=== PATIENT | female | born 1995 | race African-American/Black ===

== ENCOUNTER 2017-01-11 11:52 | Emergency (ER) | payer OTHER ==
[~2017-01-11] VITALS: Ht 170.2 cm; Wt 83.9 kg
[~2017-01-11 11:52] MED LIST: AUGMENTIN 875-1 EACH PO; BENTYL20 M1 PO; ERYTHROMYCIN5 MG/GM OPH; FIORICET 325 MG1 TAB PO; HYDROXYZINE HCL50 MG PO; HYDROXYZINE50 MG PO; MECLIZINE12.5 MG PO; MEDROL4 M2 PO; MOTRIN600 MG PO; NASONEX17 GM NASB; NOVAPLUS V0.09 MG/Ac INH; PRILOSEC 20MG C20 MG PO; TRIAMCINOL0.1 %/453 TOP; ZOFRAN 4 MG TABL4 MG PO; ZOFRAN ODT4 M1 SL
--- NOTE | 2017-01-11 12:27 | ED GENERAL ADULT ---
History of Present Illness General Chief Complaint: General Adult Stated Complaint: BIBA FOR ?HANGOVER FROM DRINKING LAST PM Source: patient Exam Limitations: no limitations Vital Signs & Intake/Output Vital Signs & Intake/Output Vital Signs Date Time Temp Pulse Resp B/P B/P Pulse O2 O2 Flow FiO2 Mean Ox Delivery Rate 01/11 1349 97.0 67 16 116/59 100 Room Air 01/11 1214 97.1 95 20 128/70 95 Room Air Allergies Coded Allergies: NO KNOWN ALLERGIES (05/13/14) Triage Note: STATES " I WAS DRINKING ALOT LAST PM", I HAVE A HANGOVER. Triage Nurses Notes Reviewed? yes : No Patient currently breastfeeds: No HPI: 21 yo F presenting with headache, nausea. Patient states that she was drinking "more than usual" last night, beer and vodka, woke up this morning with diffuse headache, nausea without emesis, malaise, fatigue, patient states consistent with previous "hangovers". Denies fevers, chills, chest pain, SOB, palpitations, abdominal pain, diarrhea, constipation, bloody stools, urinary Sx, neck pain, neck stiffness, or focal neurologic Sx. Patient states that she remembers the entire eveing, denies falls, trauma, or pain. (KALEB MCGOVERN,SHIELA) Reconcile Medications Ondansetron (Zofran Odt) 4 MG TAB.RAPDIS 1 TAB SL TID Nausea and Vomiting (ENRIQUE MCGOVERN,ALIYA) Past History Travel History Traveled to [place] past 21 day No Medical History Any Pertinent Medical History? 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 Yes (KALEB MCGOVERN,SHIELA) Review of Systems Review of Systems Constitutional: Reports: malaise. EENTM: Reports: no symptoms. Respiratory: Reports: no symptoms. Cardiovascular: Reports: no symptoms. GI: Reports: nausea. Genitourinary: Reports: no symptoms. Musculoskeletal: Reports: no symptoms. Skin: Reports: no symptoms. Neurological/Psychological: Reports: headache. Hematologic/Endocrine: Reports: no symptoms. Immunologic/Allergic: Reports: no symptoms. All Other Systems: Reviewed and Negative (SHIELA MANUEL MD) Physical Exam Physical Exam General Appearance: well developed/nourished, no apparent distress, alert, awake Head: atraumatic, normal appearance Eyes: Bilateral: normal appearance. Respiratory: normal breath sounds, no respiratory distress, lungs clear Cardiovascular: regular rate/rhythm, normal peripheral pulses Gastrointestinal: normal bowel sounds, soft, non-tender Neurologic/Psych: no motor/sensory deficits, awake, alert Comments: Abdomen: Soft and non-TTP throughout Core Measures ACS in differential dx? No CVA/TIA Diagnosis: No Severe Sepsis Present: No Septic Shock Present: No (SHIELA MANUEL MD) Progress Differential Diagnoses I considered the following diagnoses in my evaluation of the patient: [Alcohol side effect, , low concern for surgical abdominal pathology] Plan of Care: Orders Procedure Date/time Status URINE 01/11 1235 Complete Laboratory Tests 01/11/17 1256: Urine Test NEGATIVE Physician MDM: 21 yo F presenting with headache, nausea. VSS, abdominal exam benign. DDx: Alcohol side effect, , overall low concern for surgical abdominal pathology, meningitis, or or intracranial hemorrhage. Given 2L NS, zofran, toradol with subjective improvement per patient, resolution of FRAZIER and nausea, tolerated PO well in ED. Discharged with return precautions, zofran. The plan of care was discussed with the patient who expressed agreement and understanding. (SHIELA MANUEL MD) Initial ED EKG: none (SHIELA MANUEL MD) Departure Departure Disposition: HOME OR SELF CARE Condition: Stable Clinical Impression Primary Impression: Headache Secondary Impressions: Nausea Referrals: AZAEL ELLISON MD (PCP/Family) Additional Instructions: Take ibuprofen (600 mg) or tylenol (650 mg) every 4-6 hrs as needed for headache. Take zofran every 8 hours as needed for nausea. Follow up with your primary care physician as needed. Return to the ED for any new, worsening, or concerning symptoms. Departure Forms: Customer Survey General Discharge Information Prescriptions: Current Visit Scripts Ondansetron (Zofran Odt) 1 TAB SL TID #20 TAB (SHIELA MANUEL MD) Resident Co-Sign Statement Statement: ED Attending supervision documentation- [] I saw and evaluated the patient. I have also reviewed all the pertinent lab results and diagnostic results. I agree with the findings and the plan of care as documented in the Resident's documentation. [X] I have reviewed the ED Record and agree with the Resident's documentation. [] Additions or exceptions (if any) to the Resident's note and plan are summarized below: [] (ENRIQUE MCGOVERN,ALIYA) Critical Care Note Critical Care Note Critical Care Time: non-applicable (KALEB MCGOVERN,SHIELA)
[2017-01-11 13:49] VITALS: BP 116/59
[2017-01-11] MEDS ORDERED: ZOFRAN ODT4 M1 SL (14:32)
== END 2017-01-11 14:50 ==
LOC: ERH 11:52
DX: R51 Headache (principal); R11.0 Nausea
CPT/HCPCS: 81025; 96361; 96374; 96375; J1885; J2405